=== PATIENT | male | born 1960 | race Caucasian/White ===

== ENCOUNTER 2018-01-29 14:55 | Emergency (ER) | payer BC, OTHER ==
[~2018-01-29] VITALS: Ht 175.3 cm; Wt 96.6 kg
--- NOTE | ~2018-01-29 | EKG ---
[place] [address] [facility] [place] [address] ELECTROCARDIOGRAM REPORT Name: JENNIEROSAMARIA Room #: DEP LUAN Pierre#: [id number] Admission: 01/29/18 Attend Phys: Discharge: 01/29/18 Date of : 62 Report #: [id number] THIS REPORT FOR: //name// [facility] ED Test Date: 2018-01-29 Test Time: 15:52:25 Pat Name: ROSAMARIA SCHNEIDER Department: Room: Gender: Manager Housekeeping: CALLI : 1960 Requested By: Ramandeep Munroe Order Number: [id number] MD: Kahlil Smith Measurements Intervals [place] Rate: 89 P: 48 AR: 156 QRS: 41 QRSD: 84 T: 12 QT: 353 QTc: 430 Interpretive Statements Sinus rhythm Normal No previous ECG available for comparison Electronically Signed On 01-30-2018 11:30:15 CDT by Kahlil Smith [email or web address] <ELECTRONICALLY SIGNED> By: Kahlil Smith MD, [facility] 01/30/18 [id number] Kahlil Smith MD, FACC /EPI
[2018-01-29 16:22] LABS: ABSOLUTE NEUTROPHILS 7.3 thou/uL (1.4-8.2); BASOPHILS 0.9 % (0.0-2.0); HEMATOCRIT 47.1 % (42.0-52.0); HEMOGLOBIN 16.5 gm/dL (14.0-18.0); LYMPHOCYTES 34.8 % (24.0-44.0); MCH 32.7 pg (26.0-34.0); MCHC 35.1 g/dL (28.0-37.0); MONOCYTES 7.2 % (1.0-8.0); PLATELET COUNT 317 thou/uL (150-400); POLYS 55.1 % (36.0-66.0); RBC 5.07 mil/uL (4.50-6.00); RDW 13.3 % (10.5-14.5); WBC 13.2 thou/uL (4.0-11.0)
[2018-01-29 16:32] LABS: CALCIUM 9.2 mg/dL (8.5-10.1); CREATININE 0.9 mg/dL (0.7-1.3)
[2018-01-29 16:34] LABS: POTASSIUM 4.6 mmol/L (3.5-5.1)
[2018-01-29] MEDS ORDERED: FLONASE 0.05%50 MCG NASAL (17:08)
[2018-01-29] MEDS ORDERED: TESSALON PERLE100 MG PO (17:08)
[2018-01-29 17:17] VITALS: BP 177/96
== END 2018-01-29 17:18 | disposition home or self-care (01) ==
LOC: ER 14:55
PROVIDERS: Physician Assistant
DX: J06.9 Acute upper respiratory infection, unspecified (principal); I10 Essential (primary) hypertension; E11.9 Type 2 diabetes mellitus without complications; F17.210 Nicotine dependence, cigarettes, uncomplicated